=== PATIENT | male | born 1950 | race African-American/Black ===

== ENCOUNTER 2020-11-04 12:17 | Inpatient (IN) | payer BC, MEDICAID ==
[~2020-11-04] VITALS: Ht 188 cm; Wt 128.6 kg
[2020-11-04 14:09] LABS: BASOPHILS % 1.1 % (0.0-2.0); EOSINOPHILS % 2.1 % (0.0-5.0); HEMATOCRIT. 48.4 % (42.0-52.0); HEMOGLOBIN. 16.3 g/dL (14.0-18.0); MEAN CORPUSCULAR HEMOGLOBIN 29.3 pg (28.0-32.0); MEAN CORPUSCULAR VOLUME 86.9 fL (80.0-94.0); MEAN PLATELET VOLUME 8.4 fl (7.4-10.4); MONOCYTES % 11.2 % (2.0-8.0); NEUTROPHILS % 66.6 % (40.0-76.0); PLATELET 332 x1000/uL (130-400); RED BLOOD CELL COUNT 5.57 mill/uL (4.7-6.1); RED CELL DISTRIBUTION WIDTH 14.6 % (11.6-14.6)
[2020-11-04 14:12] LABS: CHLORIDE 105 mEq/L (98-107)
[2020-11-04 14:14] LABS: INR 1.1; PROTHROMBIN TIME 11.5 sec (9.6-11.0)
[2020-11-04 14:16] LABS: ETHANOL BLOOD < 10 mg/dL
[2020-11-04 15:23] LABS: CLARITY URINE CLOUDY (CLEAR); COLOR URINE DARK YELLOW (YELLOW); KETONES URINE TRACE (NEGATIVE); LEUKOCYTE ESTERASE URINE NEGATIVE (NEGATIVE); NITRITE URINE NEGATIVE (NEGATIVE); OCCULT BLOOD URINE NEGATIVE (NEGATIVE); PH URINE 5.5 (4.5-8.0); PROTEIN URINE 2+ (NEGATIVE); SPECIFIC GRAVITY URINE 1.029 (1.005-1.030)
[2020-11-04 15:37] LABS: *AMPHETAMINES SCREEN URINE NEGATIVE (NEGATIVE); *BARBITURATES SCREEN URINE NEGATIVE (NEGATIVE); *BENZODIAZEPINES SCREEN URINE NEGATIVE (NEGATIVE)
[2020-11-04 15:38] LABS: *COCAINE SCREEN URINE NEGATIVE (NEGATIVE); CANNABINOID URINE SCREEN NEGATIVE (NEGATIVE); METHADONE URINE SCREEN NEGATIVE (NEGATIVE); OPIATES URINE SCREEN NEGATIVE (NEGATIVE); PHENCYCLIDINE URINE SCREEN NEGATIVE (NEGATIVE)
[2020-11-04] MEDS ORDERED: CEFTRIAXONE 2 G PREMIX 50 ML IV ONE (16:00)
[2020-11-04] MEDS ORDERED: FUROSEMIDE 20MG/2ML VIAL IVP ONE (16:00)
[2020-11-04] MEDS ORDERED: MORPHINE SULFATE 4 MG/ML CPJ (NOT FOR IM USE) IV ONE (16:00)
[2020-11-04] MEDS ORDERED: NYSTATIN POWDER 15GM TOP SCH (17:00)
[2020-11-04] MEDS ORDERED: ASPIRIN 81MG TABLET PO ONE (18:15)
[2020-11-04] MEDS ORDERED: IOHEXOL-350 100 ML BOTTLE ONE (19:52)
[2020-11-04] MEDS ORDERED: ATORVASTATIN CALCIUM 40MG TABLET PO SCH (21:00)
[2020-11-04 22:00] VITALS: BP 134/90
[2020-11-04 22:18] VITALS: BP 154/88
[2020-11-04] MEDS ORDERED: DEXTROSE 50% WATER 50ML SYRINGE IV PRN (22:30)
[2020-11-04] MEDS: PANTOPRAZOLE 40MG DR TABLET PO SCH (22:54)
[2020-11-05] VITALS (11 sets, daily range): BP systolic 101–162; BP diastolic 54–97
[2020-11-05 06:17] LABS: T4 FREE 1.13 ng/dL (0.76-1.46)
[2020-11-05 06:23] LABS: BASOPHILS % 0.6 % (0.0-2.0); EOSINOPHILS % 1.3 % (0.0-5.0); HEMATOCRIT. 48.5 % (42.0-52.0); HEMOGLOBIN. 15.9 g/dL (14.0-18.0); LYMPHOCYTES % 21.8 % (20.0-50.0); MEAN CORPUSCULAR HEMOGLOBIN 28.1 pg (28.0-32.0); MEAN CORPUSCULAR VOLUME 85.4 fL (80.0-94.0); MEAN PLATELET VOLUME 8.9 fl (7.4-10.4); MONOCYTES % 12.9 % (2.0-8.0); NEUTROPHILS % 63.4 % (40.0-76.0); PLATELET 329 x1000/uL (130-400); RED BLOOD CELL COUNT 5.67 mill/uL (4.7-6.1); RED CELL DISTRIBUTION WIDTH 14.7 % (11.6-14.6)
[2020-11-05] MEDS: BLOOD SUGAR DIAGNOSTIC STRIP TEST SCH ×4 (07:30→20:40)
[2020-11-05] MEDS: INSULIN LISPRO 100 UNITS/ML SUBCUT SCH ×4 (08:00→20:40)
[2020-11-05] MEDS ORDERED: ENOXAPARIN 40MG/0.4ML SYR SUBCUT SCH (09:00)
[2020-11-05] MEDS ORDERED: CLOPIDOGREL 75MG TABLET PO SCH (09:00)
[2020-11-05] MEDS: METOPROLOL TARTRATE 25MG TABLET PO SCH ×2 (09:00→20:40)
[2020-11-05] MEDS ORDERED: ENOXAPARIN 30MG/0.3ML SYR SUBCUT SCH (09:00)
[2020-11-05] MEDS ORDERED: ASPIRIN 81MG TABLET PO SCH (09:00)
[2020-11-05] MEDS: PANTOPRAZOLE 40MG DR TABLET PO SCH (09:05)
[2020-11-05] MEDS: TRAMADOL 50MG TABLET PO PRN (09:06)
[2020-11-05] MEDS ORDERED: ENOXAPARIN 100MG/ML SYR SUBCUT NR (11:45)
[2020-11-05] MEDS: DILTIAZEM HCL 60MG TABLET PO SCH ×2 (12:00→17:25)
[2020-11-05] MEDS: DEXAMETHASONE 4MG/ML 1ML VIAL IV SCH (18:39)
[2020-11-05] MEDS ORDERED: ENOXAPARIN 150MG/ML SYR SUBCUT SCH (22:00)
[2020-11-06] VITALS (16 sets, daily range): BP systolic 113–167; BP diastolic 41–119
[2020-11-06] MEDS: DEXAMETHASONE 4MG/ML 1ML VIAL IV SCH ×5 (00:15→23:19)
[2020-11-06] MEDS: DILTIAZEM HCL 60MG TABLET PO SCH ×5 (00:15→23:18)
[2020-11-06] MEDS: BLOOD SUGAR DIAGNOSTIC STRIP TEST SCH ×4 (08:29→21:47)
[2020-11-06] MEDS: METOPROLOL TARTRATE 25MG TABLET PO SCH ×2 (08:57→21:49)
[2020-11-06] MEDS: PANTOPRAZOLE 40MG DR TABLET PO SCH (08:57)
[2020-11-06] MEDS: INSULIN LISPRO 100 UNITS/ML SUBCUT SCH ×4 (08:58→21:49)
[2020-11-06] MEDS: ASPIRIN 81MG EC TABLET PO SCH (09:01)
[2020-11-06] MEDS: TRAMADOL 50MG TABLET PO PRN (09:03)
[2020-11-07] VITALS (12 sets, daily range): BP systolic 108–149; BP diastolic 64–106
[2020-11-07] MEDS: DILTIAZEM HCL 60MG TABLET PO SCH ×2 (06:36→12:43)
[2020-11-07] MEDS: DEXAMETHASONE 4MG/ML 1ML VIAL IV SCH ×2 (06:36→12:43)
[2020-11-07] MEDS: FAMOTIDINE 20MG TABLET PO SCH ×2 (06:47→08:55)
[2020-11-07 06:52] LABS: HEMATOCRIT. 51.7 % (42.0-52.0); MEAN CORPUSCULAR HEMOGLOBIN 28.3 pg (28.0-32.0); MEAN CORPUSCULAR VOLUME 85.7 fL (80.0-94.0); MEAN PLATELET VOLUME 8.9 fl (7.4-10.4); PLATELET 294 x1000/uL (130-400); RED BLOOD CELL COUNT 6.03 mill/uL (4.7-6.1); RED CELL DISTRIBUTION WIDTH 14.6 % (11.6-14.6)
[2020-11-07 07:22] LABS: CHLORIDE 106 mEq/L (98-107)
[2020-11-07] MEDS: BLOOD SUGAR DIAGNOSTIC STRIP TEST SCH ×2 (07:30→12:44)
[2020-11-07] MEDS: ASPIRIN 81MG EC TABLET PO SCH (08:55)
[2020-11-07] MEDS: METOPROLOL TARTRATE 25MG TABLET PO SCH (08:56)
[2020-11-07] MEDS: INSULIN LISPRO 100 UNITS/ML SUBCUT SCH (08:57)
[2020-11-07] MEDS ORDERED: APIX5TAB MT (11:18)
[2020-11-07] MEDS ORDERED: DILT240C91 MT (11:18)
[2020-11-07] MEDS ORDERED: METO25TA6 PO (11:18)
[2020-11-07] MEDS ORDERED: LIP40 MT (11:18)
[2020-11-07 17:21] LABS: PLATELET ESTIMATE NORMAL
[2020-11-07] MEDS ORDERED: ATORVASTATIN CALCIUM 40MG TABLET PO SCH (21:00)
== END 2020-11-07 14:20 | disposition home or self-care (01) | DRG 65 ==
LOC: ER 12:17 → 5EST 18:38 → EDBEDREQ 18:43 → ENRESERV 19:42
PROVIDERS: ADMIT Internal Medicine Pulmonary Disease; ATTEND Internal Medicine Pulmonary Disease
PROC: 4A10X4Z Monitoring of Central Nervous Electrical Activity, External Approach (ICD-10-PCS; principal; 2020-11-07)
DX: I63.9 Cerebral infarction, unspecified (principal); I48.20 Chronic atrial fibrillation, unspecified; G95.20 Unspecified cord compression; I48.92 Unspecified atrial flutter; N17.9 Acute kidney failure, unspecified; M48.02 Spinal stenosis, cervical region; M48.061 Spinal stenosis, lumbar region without neurogenic claudication; G89.29 Other chronic pain; E11.9 Type 2 diabetes mellitus without complications; E78.5 Hyperlipidemia, unspecified; G90.8 Other disorders of autonomic nervous system; R29.701 NIHSS score 1; M47.812 Spondylosis without myelopathy or radiculopathy, cervical region; R27.8 Other lack of coordination; M50.20 Other cervical disc displacement, unspecified cervical region; E66.09 Other obesity due to excess calories; F17.210 Nicotine dependence, cigarettes, uncomplicated; G47.33 Obstructive sleep apnea (adult) (pediatric); Z68.36 Body mass index [BMI] 36.0-36.9, adult; Z79.01 Long term (current) use of anticoagulants
CPT/HCPCS: 36415; 70496; 70551; 71045; 72131; 72141; 72148; 80048; 80053; 80061; 80305; 80320; 81003; 82962; 83036; 83605; 83735; 83880; 84145; 84439; 84443; 84484; 85025; 86850; 86900; 93005; 93306; 93880; 95816; 97116; 97162; 99285; J0696; J1100; J1650; J1815; J1940; J2270; Q9967; G0480

== ENCOUNTER 2021-05-20 12:32 | Emergency (ER) | payer BC, OTHER ==
[~2021-05-20] VITALS: Ht 188 cm; Wt 127.0 kg
[~2021-05-20 12:32] MED LIST: APIX5TAB MT; DILT240C91 MT; LIP40 MT; METO25TA6 PO
[2021-05-20] MEDS ORDERED: CYCLOBENZAPRINE 10MG TABLET PO ONE (12:45)
[2021-05-20] MEDS ORDERED: ACETAMINOPHEN 325MG TABLET PO ONE (12:45)
[2021-05-20] MEDS ORDERED: HYDROCODONE/ACETAMINOPHEN 5/325MG TABLET PO ONE (13:30)
[2021-05-20] MEDS ORDERED: METH-653 MT (13:31)
[2021-05-20 13:33] VITALS: BP 133/90
== END 2021-05-20 13:38 | disposition home or self-care (01) ==
LOC: ER 12:32
DX: M54.50 Low back pain, unspecified (principal); E11.9 Type 2 diabetes mellitus without complications; K21.9 Gastro-esophageal reflux disease without esophagitis; I10 Essential (primary) hypertension; M10.9 Gout, unspecified; I48.91 Unspecified atrial fibrillation; Z79.01 Long term (current) use of anticoagulants; Z86.73 Personal history of transient ischemic attack (TIA), and cerebral infarction without residual deficits; V43.52XA Car driver injured in collision with other type car in traffic accident, initial encounter; Y93.89 Activity, other specified; Y92.488 Other paved roadways as the place of occurrence of the external cause
CPT/HCPCS: 93005; 99284

== ENCOUNTER 2023-11-03 11:05 | Emergency (ER) | payer OTHER ==
[~2023-11-03] VITALS: Ht 185.4 cm; Wt 127.0 kg
[~2023-11-03 11:05] MED LIST changes: +METH-653 MT
[2023-11-03 11:08] VITALS: O2SAT 96
[2023-11-03 12:22] LABS: BASOPHILS % 1.2 % (0.0-2.0); EOSINOPHILS % 3.1 % (0.0-5.0); HEMATOCRIT. 42.2 % (42.0-52.0); HEMOGLOBIN. 13.3 g/dL (14.0-18.0); LYMPHOCYTES % 24.4 % (20.0-50.0); MEAN CORPUSCULAR HGB CONC 31.5 g/dL (31.0-37.0); MEAN CORPUSCULAR VOLUME 82.6 fL (80.0-94.0); MEAN PLATELET VOLUME 8.4 fl (7.4-10.4); MONOCYTES % 11.4 % (2.0-8.0); NEUTROPHILS % 59.9 % (40.0-76.0); PLATELET 284 x1000/uL (130-400); RED BLOOD CELL COUNT 5.11 mill/uL (4.7-6.1); RED CELL DISTRIBUTION WIDTH 15.8 % (11.6-14.6); WHITE BLOOD COUNT 4.7 x1000/uL (4.5-11.0)
[2023-11-03 12:30] LABS: CHLORIDE 104 mEq/L (98-107); POTASSIUM 4.5 mEq/L (3.5-5.1); SODIUM 141 mEq/L (136-145)
[2023-11-03] MEDS: SODIUM CHLORIDE 0.9% 1,000 ML IV ONE (12:30)
[2023-11-03 12:31] LABS: CARBON DIOXIDE 33 mEq/L (21-32)
[2023-11-03 12:32] LABS: CALCIUM 9.1 mg/dL (8.7-10.4)
[2023-11-03 12:37] LABS: CREATININE 1.6 mg/dL (0.6-1.3); GLUCOSE 110 mg/dL (70-105); UREA NITROGEN BLOOD 18 mg/dL (9-23)
[2023-11-03 12:38] LABS: TROPONIN I HIGH SENSITIVITY 26 ng/L (3.0-53)
[2023-11-03 12:57] LABS: D-DIMER 0.38 mg/L FEU (<0.50); INR 2.5; PROTHROMBIN TIME 25.8 sec (9.6-11.0)
[2023-11-03 14:51] LABS: TROPONIN I HIGH SENSITIVITY 27 ng/L (3.0-53)
[2023-11-03 16:00] VITALS: BP 140/104; PULSE 62; RESP 14; TEMP 98.4
== END 2023-11-03 16:08 | disposition home or self-care (01) ==
LOC: ER 11:05
DX: R55 Syncope and collapse (principal); E86.0 Dehydration; I95.9 Hypotension, unspecified; E11.9 Type 2 diabetes mellitus without complications; K21.9 Gastro-esophageal reflux disease without esophagitis; I10 Essential (primary) hypertension; Z86.73 Personal history of transient ischemic attack (TIA), and cerebral infarction without residual deficits; Z79.899 Other long term (current) drug therapy
CPT/HCPCS: 99285; 96360; 71045; 96361; 80048; 83880; 83605; 85025; 85379; 85610; 86850; 86900; 86901; 87040; 84484; 36415; 93005; J7030

== ENCOUNTER 2024-11-11 09:59 | Emergency (ER) | payer MEDICARE, OTHER ==
[~2024-11-11] VITALS: Ht 188 cm; Wt 127.0 kg
[2024-11-11 10:01] VITALS: O2SAT 98
[2024-11-11] MEDS: SODIUM CHLORIDE 0.9% (SEPSIS BOLUS) IV ONE (10:55)
[2024-11-11] MEDS: CEFTRIAXONE 1GM/50ML 50 ML IV ONE (10:56)
[2024-11-11 11:02] LABS: BASOPHILS % 0.5 % (0.0-2.0); EOSINOPHILS % 2.1 % (0.0-5.0); HEMATOCRIT. 38.7 % (42.0-52.0); HEMOGLOBIN. 12.5 g/dL (14.0-18.0); LYMPHOCYTES % 24.3 % (20.0-50.0); MEAN PLATELET VOLUME 9.3 fl (7.4-10.4); MONOCYTES % 10.7 % (2.0-8.0); NEUTROPHILS % 62.4 % (40.0-76.0); PLATELET 178 x1000/uL (130-400); RED BLOOD CELL COUNT 4.76 mill/uL (4.7-6.1); RED CELL DISTRIBUTION WIDTH 15.7 % (11.6-14.6)
[2024-11-11 11:12] LABS: INR 1.0
[2024-11-11 11:18] LABS: CREATININE 1.6 mg/dL (0.6-1.3); UREA NITROGEN BLOOD 28 mg/dL (9-23)
[2024-11-11 11:19] LABS: ETHANOL BLOOD < 10 mg/dL (<10); TROPONIN I HIGH SENSITIVITY 45 ng/L (3.0-53)
[2024-11-11 11:20] LABS: ASPARTATE AMINOTRANSFERASE 15 IU/L (<34); BILIRUBIN DIRECT 0.2 mg/dL (<=3.0)
[2024-11-11 11:21] LABS: BILIRUBIN TOTAL 0.5 mg/dL (0.1-1.0); PROTEIN TOTAL 6.2 g/dL (6.0-8.3)
[2024-11-11 13:11] VITALS: TEMP 37
[2024-11-11 13:23] LABS: CLARITY URINE CLEAR (CLEAR); COLOR URINE YELLOW (YELLOW); GLUCOSE URINE 1+ (NEGATIVE); KETONES URINE NEGATIVE (NEGATIVE); NITRITE URINE NEGATIVE (NEGATIVE); OCCULT BLOOD URINE NEGATIVE (NEGATIVE); PH URINE 6.5 (4.5-8.0); PROTEIN URINE TRACE (NEGATIVE); SPECIFIC GRAVITY URINE 1.017 (1.005-1.030); UROBILINOGEN URINE 1.0 E.U./dL (0.2-1.0)
[2024-11-11 13:24] LABS: LEUKOCYTE ESTERASE URINE NEGATIVE (NEGATIVE)
[2024-11-11 13:42] LABS: SQUAMOUS EPITHELIAL CELL URINE 1+ /lpf (RARE/1+)
[2024-11-11 13:47] LABS: RBC URINE NONE SEEN /hpf (0-2); WBC URINE NONE SEEN /hpf (0-2)
[2024-11-11 13:48] LABS: BACTERIA URINE NONE SEEN; HYALINE CASTS URINE 0-5 /lpf
[2024-11-11] MEDS: METOPROLOL TARTRATE 5MG/5ML VIAL IV ONE (15:55)
[2024-11-11 15:59] VITALS: BP 177/108; PULSE 76; RESP 14; O2SAT 100
[2024-11-11] MEDS ORDERED: DILTIAZEM HCL 60MG TABLET PO SCH (18:00)
== END 2024-11-11 16:46 | disposition short-term general hospital (02) ==
LOC: ER 09:59 → CANBEDREQ 16:17 → ER 16:46
DX: A41.9 Sepsis, unspecified organism (principal); I10 Essential (primary) hypertension; E11.9 Type 2 diabetes mellitus without complications; I48.91 Unspecified atrial fibrillation; Z79.899 Other long term (current) drug therapy; Z98.890 Other specified postprocedural states; Z86.73 Personal history of transient ischemic attack (TIA), and cerebral infarction without residual deficits
CPT/HCPCS: 80076; 80048; 81003; 80320; 83605; 84443; 85025; 85610; 87040; 87086; 84484; 36415; 84145; 71045; 93005; 96365; 96375; 99291; J0696; J3490; J7030; A4606; G0480